=== PATIENT | male | born 1975 | race Caucasian/White ===

== ENCOUNTER 2023-04-04 02:24 | Emergency (ER) | payer BC ==
[2023-04-04] MEDS ORDERED: Ketorolac Tromethamine 30 MG (1 mL) VIAL ONE (03:14)
[2023-04-04] MEDS ORDERED: Sodium Chloride 0.9% 1,000 ML ONE (03:14)
[2023-04-04] MEDS ORDERED: Prochlorperazine 10 MG/2 ML VIAL ONE (03:14)
[2023-04-04] MEDS ORDERED: diphenhydrAMINE 50 MG/ML VIAL ONE ×2 (03:14→04:32)
== END 2023-04-04 05:28 | disposition home or self-care (01) ==
LOC: NAV ERS 02:24
DX: R51.9 Headache, unspecified (principal); R29.710 NIHSS score 10; F17.220 Nicotine dependence, chewing tobacco, uncomplicated; Z86.011 Personal history of benign neoplasm of the brain
CPT/HCPCS: 70450; 96365; 96375; 96376; J0780; J1200; J1885; J7050